=== PATIENT | male | born 1960 | race Caucasian/White ===

== ENCOUNTER 2016-09-11 08:27 | Emergency (ER) | payer MEDICAID ==
[~2016-09-11] VITALS: Ht 175.3 cm; Wt 81.6 kg
--- NOTE | 2016-09-11 08:33 | NUR ---
PRESENTS SELF TO ED DT LEFT LOWER LEG WEAKNESS SINCE LAST NIGHT. PATIENT IS AAO4. APPEARS IN NO APPARENT DISTRESS. RESPIRATION EVEN AND UNLABORED,. SKIN IS WARM TO TOUCH AND NON DIAPHORETIC. PT AFEBRILE. NOTED WITH LEFT FACIAL DROOP-- FROM PREVIOUS STROKE PER PT. GOWNED PT AND PLACED ON TELE MONITOR
--- NOTE | 2016-09-11 08:40 | NUR ---
MD ARIAS AT BS
--- NOTE | 2016-09-11 08:45 | NUR ---
PAGED DR MONSIVAIS FOR CONSULT. WAITING TO CALL US BACK.
--- NOTE | 2016-09-11 08:47 | NUR ---
EKG IN PROGRESS
--- NOTE | 2016-09-11 08:50 | NUR ---
IV ACCESSED TO RFA G20
--- NOTE | 2016-09-11 08:50 | NUR ---
STRAIGHT LINE PRESS SETTER AT FOR BLOOD DRAW
[2016-09-11 08:59] LABS: BASOPHILS # (AUTO) 0.1 /CMM (0.0-0.2); BASOPHILS % (AUTO) 0.6 % (0.0-2.0); EOSINOPHILS % (AUTO) 0.3 % (0.0-6.0); HEMATOCRIT 42 % (39-51); LYMPHOCYTES # (AUTO) 1.7 /CMM (0.8-4.8); LYMPHOCYTES % (AUTO) 19.4 % (20.0-44.0); MEAN CORPUSCULAR HEMOGLOBIN 27 PG (26.0-33.0); MEAN CORPUSCULAR HGB CONC 33 g/dl (31.0-36.0); MEAN CORPUSCULAR VOLUME 82 fL (80-96); MONOCYTES # (AUTO) 0.6 /CMM (0.1-1.30); MONOCYTES % (AUTO) 6.5 % (2.0-12.0); NEUTROPHILS # (AUTO) 6.4 /CMM (1.8-8.9); NEUTROPHILS % (AUTO) 73.2 % (43.0-81.0); PLATELET COUNT (AUTO) 234 /CMM (150-450); RDW COEFFICIENT OF VARIATION 14.6 (11.5-15.0); RED BLOOD CELL COUNT(AUTO) 5.16 MIL/uL (4.5-6.0); WHITE BLOOD COUNT (AUTO) 8.8 K/uL (4.3-11.0)
[2016-09-11 09:19] LABS: TROPONIN I 0.035 ng/mL (0.00-0.056)
--- NOTE | 2016-09-11 09:20 | NUR ---
PT IS BACK FROM CT
[2016-09-11 09:22] LABS: INR 1.01 (0.87-1.13); PROTHROMBIN TIME 10.8 SECS (9.5-12.7)
[2016-09-11] MEDS ORDERED: IV NS 0.9% 1,000 ML ONE ×2 (09:24→09:55)
[2016-09-11 09:26] LABS: CALCIUM, SERUM 9.4 mg/dL (8.5-10.1); CREATININE 0.9 mg/dL (0.6-1.3); POTASSIUM 4.6 mmol/L (3.5-5.1)
[2016-09-11] MEDS ORDERED: IV NS 0.9% 1,000 ML BAG IV ONE ×2 (09:30→10:00)
[2016-09-11 09:40] LABS: APPEARANCE,URINE CLEAR (CLEAR); BILIRUBIN,URINE 1+ (NEGATIVE); BLOOD, URINE TRACE-INTA Ery/uL (NEGATIVE); COLOR,URINE YELLOW (YELLOW); KETONES,URINE 2+ (NEGATIVE); LEUKOCYTE ESTERASE ,URINE NEGATIVE (NEGATIVE); NITRITE, URINE NEGATIVE (NEGATIVE); PROTEIN,URINE TRACE mg/dl (NEGATIVE); UGLUCOSE 3+ mg/dL (NEGATIVE); UROBILINOGEN,URINE 0.2 EU/dL (0.2)
[2016-09-11 09:52] LABS: RBC,URINE 0-2 /HPF (0-2); SQUAMOUS EPITHELIAL CELL,UR Rare /HPF (None Seen)
[2016-09-11 09:55] LABS: BACTERIA,URINE Rare /HPF (None Seen)
[2016-09-11] MEDS ORDERED: IV SET PRIMARY PUMP SET 1 EA INFUS.SET MC ONE (09:55)
[2016-09-11] MEDS ORDERED: ASPIRIN 325 MG TABLET ONE (09:55)
[2016-09-11] MEDS ORDERED: INSULIN REGULAR, HUMAN 100 UNIT/ML 10 ML VIAL ONE (09:55)
[2016-09-11] MEDS ORDERED: INSULIN REGULAR, HUMAN 100 UNIT/ML 10 ML VIAL SQ ONE (10:00)
[2016-09-11] MEDS ORDERED: ASPIRIN 325 MG TABLET PO ONE (10:00)
[2016-09-11 11:24] VITALS: BP 120/66
--- NOTE | 2016-09-11 11:25 | NUR ---
Patient discharged to home in stable condition. Written and verbal after care instructions given. Patient verbalizes understanding of instruction.
== END 2016-09-11 11:25 | disposition home or self-care (01) ==
LOC: ER 08:29
DX: R53.1 Weakness (principal); R00.0 Tachycardia, unspecified; I10 Essential (primary) hypertension; R51 Headache; F17.200 Nicotine dependence, unspecified, uncomplicated; I25.2 Old myocardial infarction; E11.65 Type 2 diabetes mellitus with hyperglycemia; Z72.0 Tobacco use; Z86.73 Personal history of transient ischemic attack (TIA), and cerebral infarction without residual deficits
CPT/HCPCS: 36415; 70450; 71010; 80048; 80305; 81001; 82962; 84484; 85025; 85730; 93005; 96360; 96361; 96372; 99285; A4606; J1815; J7030 ×2; Z7610; 81000-TC

== ENCOUNTER 2019-10-13 12:22 | Emergency (ER) | payer MEDICARE, OTHER, BC ==
[~2019-10-13] VITALS: Ht 180.3 cm; Wt 79.4 kg
--- NOTE | 2019-10-13 12:22 | NUR ---
PT ENIO FROM THE STREETS C/O WEAKNESS FOR 2 DAYS AFTER USING [facility]. PT IS AAOX4, NOT IN RESPIRATORY DISTRESS, HOOKED TO PRINTING PRESSMAN, KEPT RESTED AND COMFORTABLE. WILL CONTINUE TO MONITOR.
--- NOTE | 2019-10-13 12:35 | NUR ---
AT BEDSIDE FOR EVAL.
[2019-10-13] MEDS ORDERED: INSULIN REGULAR, HUMAN 100 UNIT/ML 10 ML VIAL ONE (13:57)
[2019-10-13] MEDS ORDERED: INSULIN REGULAR, HUMAN 100 UNIT/ML 10 ML VIAL SQ ONE ×2 (14:00)
--- NOTE | 2019-10-13 14:00 | NUR ---
INSULING REGULAR 6 UNITS GIVEN VIA SQ. NO NEED FOR RECHECK PER .
--- NOTE | 2019-10-13 14:01 | NUR ---
Patient discharged to home in stable condition. Written and verbal after care instructions given. Patient verbalizes understanding of instruction.
[2019-10-13 14:02] VITALS: BP 133/88
== END 2019-10-13 14:03 | disposition home or self-care (01) ==
LOC: ER 12:25
DX: R53.1 Weakness (principal); F15.10 Other stimulant abuse, uncomplicated; E11.65 Type 2 diabetes mellitus with hyperglycemia; I25.2 Old myocardial infarction; F17.200 Nicotine dependence, unspecified, uncomplicated; Z86.73 Personal history of transient ischemic attack (TIA), and cerebral infarction without residual deficits
CPT/HCPCS: 82962; 99283; J1815